=== PATIENT | male | born 1980 | race African-American/Black ===

== ENCOUNTER 2019-01-02 17:21 | Emergency (ER) | payer OTHER ==
[~2019-01-02] VITALS: Ht 188 cm; Wt 145.2 kg
[2019-01-02] MEDS ORDERED: NORCO 5-325 TA1 EAC1 PO (18:29)
[2019-01-02] MEDS ORDERED: CLEOCIN HCL150 M1 PO (18:29)
[2019-01-02 18:58] VITALS: BP 141/100
== END 2019-01-02 18:58 | disposition home or self-care (01) ==
LOC: M.ERS 17:21
DX: L02.31 Cutaneous abscess of buttock (principal); L03.317 Cellulitis of buttock